=== PATIENT | female | born 1960 | race Caucasian/White ===

== ENCOUNTER 2022-05-29 15:30 | Inpatient (IN) | payer MEDICAID ==
[2022-05-29] MEDS ORDERED: traZODone 50 MG TAB PO SCH (22:00)
[2022-05-29 23:41] LABS: Basophils % (Auto) 0.4 % (0.0-1.8); Eosinophils % (Auto) 1.5 % (0.0-4.3); Hematocrit 38.8 % (30.3-42.9); Hemoglobin 12.8 gm/dl (10.1-14.3); Lymphocytes # (Auto) 1.1 K/mm3 (1.2-5.4); Mean Corpuscular HGB Conc 33 % (30-34); Mean Corpuscular Volume 94 fl (79-97); Monocytes # (Auto) 0.4 K/mm3 (0.0-0.8); Monocytes % (Auto) 11.9 % (0.0-7.3); Platelet Count 250 K/mm3 (140-440); Red Blood Count 4.12 M/mm3 (3.65-5.03)
[2022-05-30] MEDS: QUEtiapine 25 MG TAB PO SCH ×2 (00:07→21:19)
[2022-05-30 01:07] LABS: Alanine Aminotransferase 9 units/L (7-56); Albumin 3.9 g/dL (3.9-5); BUN/Creatinine Ratio 16; Blood Urea Nitrogen 13 mg/dL (7-17); Calcium 9.1 mg/dL (8.4-10.2); Hemolysis Index 3
[2022-05-30 01:21] LABS: Chol/HDL Ratio 2.22 %; HDL Cholesterol 89 mg/dL (40-59); LDL Cholesterol,Direct 108 mg/dL (50-130)
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
[2022-05-30] MEDS ORDERED: NITROGLYCERIN 0.4 MG TAB SUBL SL SCH (09:00)
[2022-05-30] MEDS ORDERED: ESTRADIOL 0.5 MG PO SCH (10:00)
[2022-05-30] MEDS: PRENATAL VIT27-FE FUMARATE-FOLIC ACID VIT TAB PO SCH (10:20)
[2022-05-30] MEDS: PANTOPRAZOLE 40 MG TAB PO SCH (10:20)
[2022-05-30] MEDS: ESTRADIOL 1 MG TAB PO SCH (10:20)
[2022-05-30] MEDS: DIVALPROEX DR 125 MG TAB PO SCH ×2 (10:20→21:19)
[2022-05-30] MEDS: DONEPEZIL 5 MG TAB PO SCH (21:19)
[2022-05-31] MEDS: ESTRADIOL 1 MG TAB PO SCH (09:17)
[2022-05-31] MEDS: PANTOPRAZOLE 40 MG TAB PO SCH (09:18)
[2022-05-31] MEDS: DIVALPROEX DR 125 MG TAB PO SCH (09:18)
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
[2022-05-31] MEDS: PRENATAL VIT27-FE FUMARATE-FOLIC ACID VIT TAB PO SCH (13:18)
[2022-05-31] MEDS: IBUPROFEN 800 MG TAB PO PRN (17:05)
[2022-05-31] MEDS: QUEtiapine 25 MG TAB PO SCH (21:26)
[2022-05-31] MEDS: DIVALPROEX DR 250 MG TAB PO SCH (21:26)
[2022-05-31] MEDS: DONEPEZIL 5 MG TAB PO SCH (21:26)
--- NOTE | 2022-06-01 08:54 | Progress Note ---
Subjective Date of service: 06/01/22 Subjective Comment: The patient was seen today. She is calm and cooperative. She says she feels okay. The patient states that she "didn't sleep too well." She denies SI/HI or hallucinations of any kind. REVIEW OF SYSTEMS Constitutional: Negative for weight loss ENT: Negative for stridor Respiratory: Negative for cough or hemoptysis All other systems reviewed and are negative MENTAL STATUS EXAMINATION General Appearance and Behavior: Age appropriate, wearing appropriate clothes, cooperative, polite with questioning, good eye contact Cooperation: cooperative Psychomotor Behavior: Psychomotor normal Mood: calm Affect and affective range: congruent with states mood Thought Process: Goal oriented Thought Content: paranoid/ delusions Speech: Normal volume, Regular rate and rhythm Suicidal Ideation: Denies Homicidal Ideation: Denies Hallucination: Denies Delusions:Yes Impulse Control: Limited Insight and Judgment: Limited Memory: Intact Attention:attentive Orientation: Alert and oriented Diagnoses: Bipolar Treatment Plan Patient admitted for inpatient psychiatric evaluation, medication adjustment and close monitoring The patient's behavior, mood, sleep and appetite will be closely monitored. Patient enrolled in individual and group therapeutic sessions and encouraged to attend. Patient provided with a safe and structured environment. Patient's physical health needs will be addressed by the Hospitalist. Hospitalist Consulted Labs including CBC, CMP, Lipid profile and Hemoglobin A1C levels ordered for baseline reference Social Assessment will be completed and the Corpsman will work with patient and family to ensure a suitable and safe disposition Medication adjustment will be made as clinically indicated Increased Seroquel 50mg po qhs Usual Wellness Religious/Preservation: - Start Trazodone 50 mg po QHS & 50 mg po QHS PRN between 10 PM & 2 AM for insomnia - Start Melatonin 5 mg po QHS to promote circadian rhythm The patient agreed on the treatment plan, understood the risk, benefit, alternative treatment, potential consequence of no treatment, and gave informed consent. Estimated days: 7 Post hospital care: primary care provider, psychiatric provider Case staffed with Dr. Angeles Medications and Allergies Allergies Allergy/AdvReac Type Severity Reaction Status Date / Time codeine Allergy Unknown Verified 05/29/22 18:42 diphenhydramine Allergy Unknown Verified 05/29/22 18:42 [From Benadryl] Home Medications Medication Instructions Recorded Confirmed Last Taken Type Nitroglycerin [Nitrostat] 0.4 mg SL PRN 05/29/22 05/29/22 Unknown History Pantoprazole [Protonix] 40 mg PO QDAY 05/29/22 05/29/22 Unknown History Vit-Fe Fumar-FA [ 1 mg PO DAILY 05/29/22 05/29/22 Unknown History Vitamin] QUEtiapine [SEROquel] 25 mg PO HS 05/29/22 05/29/22 Unknown History donepeziL [Aricept] 5 mg PO QHS 05/29/22 05/29/22 Unknown History estradioL [Estradiol] 0.5 mg PO DAILY 05/29/22 05/29/22 Unknown History Active Meds: Active Medications Divalproex Sodium (Divalproex Dr 250 Mg Tab) 250 mg PO BID [facility] Last Admin: 05/31/22 21:26 Dose: Not Given Donepezil HCl (Donepezil 5 Mg Tab) 5 mg PO QHS [facility] Last Admin: 05/31/22 21:26 Dose: Not Given Estradiol (Estradiol 1 Mg Tab) 0.5 mg PO QDAY [facility] Last Admin: 05/31/22 09:17 Dose: 0.5 mg Ibuprofen (Ibuprofen 800 Mg Tab) 800 mg PO Q8H PRN PRN Reason: Pain, Mild (1-3) Last Admin: 05/31/22 17:05 Dose: 800 mg Multivitamins/Iron/Calcium ( [id number] Fumarate-Folic Acid Vit Tab) 1 each PO DAILY [facility] Last Admin: 05/31/22 13:18 Dose: 1 each Nitroglycerin (Nitroglycerin 0.4 Mg Tab Subl) 0.4 mg SL PRN [facility] Pantoprazole Sodium (Pantoprazole 40 Mg Tab) 40 mg PO QDAY [facility] Last Admin: 05/31/22 09:18 Dose: 40 mg Quetiapine Fumarate (Quetiapine 25 Mg Tab) 25 mg PO [facility] Last Admin: 05/31/22 21:26 Dose: 25 mg Results - Results Labs/Vitals: Laboratory Last Values WBC 3.0 K/mm3 (4.5-11.0) L 05/29/22 23:25 RBC 4.12 M/mm3 (3.65-5.03) 05/29/22 23:25 Hgb 12.8 gm/dl (10.1-14.3) 05/29/22 23:25 Hct 38.8 % (30.3-42.9) 05/29/22 23:25 MCV 94 fl (79-97) 05/29/22 23:25 MCH 31 pg (28-32) 05/29/22 23:25 MCHC 33 % (30-34) 05/29/22 23:25 RDW 13.0 % (13.2-15.2) L 05/29/22 23:25 Plt Count 250 K/mm3 (140-440) 05/29/22 23:25 Lymph % (Auto) 36.0 % (13.4-35.0) H 05/29/22 23:25 [place] % (Auto) 11.9 % (0.0-7.3) H 05/29/22 23:25 Eos % (Auto) 1.5 % (0.0-4.3) 05/29/22 23:25 Baso % (Auto) 0.4 % (0.0-1.8) 05/29/22 23:25 Lymph # (Auto) 1.1 K/mm3 (1.2-5.4) L 05/29/22 23:25 [place] # (Auto) 0.4 K/mm3 (0.0-0.8) 05/29/22 23:25 Eos # (Auto) 0.0 K/mm3 (0.0-0.4) 05/29/22 23:25 Baso # (Auto) 0.0 K/mm3 (0.0-0.1) 05/29/22 23:25 Seg Neutrophils % 50.2 % (40.0-70.0) 05/29/22 23:25 Seg Neutrophils # 1.5 K/mm3 (1.8-7.7) L 05/29/22 23:25 Sodium 142 mmol/L (137-145) 05/29/22 23:25 Potassium 3.8 mmol/L (3.6-5.0) 05/29/22 23:25 Chloride 106.3 mmol/L (98-107) 05/29/22 23:25 Carbon Dioxide 25 mmol/L (22-30) 05/29/22 23:25 Anion Gap 15 mmol/L 05/29/22 23:25 BUN 13 mg/dL (7-17) 05/29/22 23:25 Creatinine 0.8 mg/dL (0.6-1.2) 05/29/22 23:25 Estimated GFR > 60 ml/min 05/29/22 23:25 BUN/Creatinine Ratio 16 % 05/29/22 23:25 Glucose 105 mg/dL (65-100) H 05/29/22 23:25 POC Glucose 109 mg/dL (70-105) H 05/29/22 23:52 Hemoglobin A1c 5.5 % (4-6) 05/29/22 23:25 Calcium 9.1 mg/dL (8.4-10.2) 05/29/22 23:25 Total Bilirubin 0.40 mg/dL (0.1-1.2) 05/29/22 23:25 AST 14 units/L (5-40) 05/29/22 23:25 ALT 9 units/L (7-56) 05/29/22 23:25 Alkaline Phosphatase 90 units/L (35-129) 05/29/22 23:25 Total Protein 6.7 g/dL (6.3-8.2) 05/29/22 23:25 Albumin 3.9 g/dL (3.9-5) 05/29/22 23:25 Albumin/Globulin Ratio 1.4 % 05/29/22 23:25 Triglycerides 38 mg/dL (2-149) 05/29/22 23:25 Cholesterol 198 mg/dL (50-199) 05/29/22 23:25 LDL Cholesterol Direct 108 mg/dL (50-130) 05/29/22 23:25 HDL Cholesterol 89 mg/dL (40-59) H 05/29/22 23:25 Cholesterol/HDL Ratio 2.22 % 05/29/22 23:25 TSH 1.730 mlU/mL (0.270-4.200) 05/29/22 23:25 Last Vital Signs Temp 98.9 F 06/01/22 07:34 Pulse 79 06/01/22 07:34 Resp 16 06/01/22 07:34 BP 145/59 06/01/22 07:34 Pulse Ox 100 06/01/22 07:34
[2022-06-01] MEDS: PANTOPRAZOLE 40 MG TAB PO SCH (09:32)
[2022-06-01] MEDS: PRENATAL VIT27-FE FUMARATE-FOLIC ACID VIT TAB PO SCH (09:32)
[2022-06-01] MEDS: ESTRADIOL 1 MG TAB PO SCH (09:34)
[2022-06-01] MEDS: DIVALPROEX DR 250 MG TAB PO SCH ×3 (09:43→23:22)
[2022-06-01] MEDS: DONEPEZIL 5 MG TAB PO SCH ×2 (21:28→23:22)
[2022-06-01] MEDS: QUEtiapine 25 MG TAB PO SCH ×2 (21:28→23:22)
--- NOTE | 2022-06-02 09:00 | Progress Note ---
Subjective Date of service: 06/02/22 Principal diagnosis: Bipolar Disorder Subjective Comment: The patient was seen today. She says she is doing okay. She says she had to put blankets on her legs because she didn't get her JESSICA hose. The patient denies SI/HI or hallucinations. She says she did not sleep well due to another patient yelling and screaming. 06/01 The patient was seen today. She is calm and cooperative. She says she feels okay. The patient states that she "didn't sleep too well." She denies SI/HI or hallucinations of any kind. REVIEW OF SYSTEMS Constitutional: Negative for weight loss ENT: Negative for stridor Respiratory: Negative for cough or hemoptysis All other systems reviewed and are negative MENTAL STATUS EXAMINATION General Appearance and Behavior: Age appropriate, wearing appropriate clothes, cooperative, polite with questioning, good eye contact Cooperation: cooperative Psychomotor Behavior: Psychomotor normal Mood: calm Affect and affective range: congruent with states mood Thought Process: Goal oriented Thought Content: paranoid/ delusions Speech: Normal volume, Regular rate and rhythm Suicidal Ideation: Denies Homicidal Ideation: Denies Hallucination: Denies Delusions:Yes Impulse Control: Limited Insight and Judgment: Limited Memory: Intact Attention:attentive Orientation: Alert and oriented Diagnoses: Bipolar Treatment Plan Patient admitted for inpatient psychiatric evaluation, medication adjustment and close monitoring The patient's behavior, mood, sleep and appetite will be closely monitored. Patient enrolled in individual and group therapeutic sessions and encouraged to attend. Patient provided with a safe and structured environment. Patient's physical health needs will be addressed by the Hospitalist. Hospitalist Consulted Labs including CBC, CMP, Lipid profile and Hemoglobin A1C levels ordered for baseline reference Social Assessment will be completed and the Sales Hunter will work with pat ient and family to ensure a suitable and safe disposition Medication adjustment will be made as clinically indicated Increased Seroquel 50mg po qhs yesterday No changes made today Usual Wellness Alevism/Preservation: - Start Trazodone 50 mg po QHS & 50 mg po QHS PRN between 10 PM & 2 AM for insomnia - Start Melatonin 5 mg po QHS to promote circadian rhythm The patient agreed on the treatment plan, understood the risk, benefit, alternative treatment, potential consequence of no treatment, and gave informed consent. Estimated days: 7 Post hospital care: primary care provider, psychiatric provider Case staffed with Dr. Angeles Medications and Allergies Allergies Allergy/AdvReac Type Severity Reaction Status Date / Time codeine Allergy Unknown Verified 05/29/22 18:42 diphenhydramine Allergy Unknown Verified 05/29/22 18:42 [From Benadryl] Home Medications Medication Instructions Recorded Confirmed Last Taken Type Nitroglycerin [Nitrostat] 0.4 mg SL PRN 05/29/22 05/29/22 Unknown History Pantoprazole [Protonix] 40 mg PO QDAY 05/29/22 05/29/22 Unknown History Vit-Fe Fumar-FA [ 1 mg PO DAILY 05/29/22 05/29/22 Unknown History Vitamin] QUEtiapine [SEROquel] 25 mg PO HS 05/29/22 05/29/22 Unknown History donepeziL [Aricept] 5 mg PO QHS 05/29/22 05/29/22 Unknown History estradioL [Estradiol] 0.5 mg PO DAILY 05/29/22 05/29/22 Unknown History Active Meds: Active Medications Divalproex Sodium (Divalproex Dr 250 Mg Tab) 250 mg PO BID [facility] Last Admin: 06/01/22 23:22 Dose: Not Given Donepezil HCl (Donepezil 5 Mg Tab) 5 mg PO QHS [facility] Last Admin: 06/01/22 23:22 Dose: Not Given Estradiol (Estradiol 1 Mg Tab) 0.5 mg PO QDAY [facility] Last Admin: 06/01/22 09:34 Dose: 0.5 mg Ibuprofen (Ibuprofen 800 Mg Tab) 800 mg PO Q8H PRN PRN Reason: Pain, Mild (1-3) Last Admin: 05/31/22 17:05 Dose: 800 mg Multivitamins/Iron/Calcium ( [id number]-Ki Fumarate-Folic Acid Vit Tab) 1 each PO DAILY [facility] Last Admin: 06/01/22 09:32 Dose: 1 each Nitroglycerin (Nitroglycerin 0.4 Mg Tab Subl) 0.4 mg SL PRN [facility] Pantoprazole Sodium (Pantoprazole 40 Mg Tab) 40 mg PO QDAY [facility] Last Admin: 06/01/22 09:32 Dose: 40 mg Quetiapine Fumarate (Quetiapine 25 Mg Tab) 50 mg PO QHS [facility] Last Admin: 06/01/22 23:22 Dose: Not Given Results - Results Labs/Vitals: Laboratory Last Values WBC 3.0 K/mm3 (4.5-11.0) L 05/29/22 23:25 RBC 4.12 M/mm3 (3.65-5.03) 05/29/22 23:25 Hgb 12.8 gm/dl (10.1-14.3) 05/29/22 23:25 Hct 38.8 % (30.3-42.9) 05/29/22 23:25 MCV 94 fl (79-97) 05/29/22 23:25 MCH 31 pg (28-32) 05/29/22 23:25 MCHC 33 % (30-34) 05/29/22 23:25 RDW 13.0 % (13.2-15.2) L 05/29/22 23:25 Plt Count 250 K/mm3 (140-440) 05/29/22 23:25 Lymph % (Auto) 36.0 % (13.4-35.0) H 05/29/22 23:25 [place] % (Auto) 11.9 % (0.0-7.3) H 05/29/22 23:25 Eos % (Auto) 1.5 % (0.0-4.3) 05/29/22 23:25 Baso % (Auto) 0.4 % (0.0-1.8) 05/29/22 23:25 Lymph # (Auto) 1.1 K/mm3 (1.2-5.4) L 05/29/22 23:25 [place] # (Auto) 0.4 K/mm3 (0.0-0.8) 05/29/22 23:25 Eos # (Auto) 0.0 K/mm3 (0.0-0.4) 05/29/22 23:25 Baso # (Auto) 0.0 K/mm3 (0.0-0.1) 05/29/22 23: Seg Neutrophils % 50.2 % (40.0-70.0) 05/29/22 23:25 Seg Neutrophils # 1.5 K/mm3 (1.8-7.7) L 05/29/22 23:25 Sodium 142 mmol/L (137-145) 05/29/22 23:25 Potassium 3.8 mmol/L (3.6-5.0) 05/29/22 23:25 Chloride 106.3 mmol/L (98-107) 05/29/22 23:25 Carbon Dioxide 25 mmol/L (22-30) 05/29/22 23:25 Anion Gap 15 mmol/L 05/29/22 23:25 BUN 13 mg/dL (7-17) 05/29/22 23:25 Creatinine 0.8 mg/dL (0.6-1.2) 05/29/22 23:25 Estimated GFR > 60 ml/min 05/29/22 23:25 BUN/Creatinine Ratio 16 % 05/29/22 23:25 Glucose 105 mg/dL (65-100) H 05/29/22 23:25 POC Glucose 109 mg/dL (70-105) H 05/29/22 23:52 Hemoglobin A1c 5.5 % (4-6) 05/29/22 23:25 Calcium 9.1 mg/dL (8.4-10.2) 05/29/22 23:25 Total Bilirubin 0.40 mg/dL (0.1-1.2) 05/29/22 23:25 AST 14 units/L (5-40) 05/29/22 23:25 ALT 9 units/L (7-56) 05/29/22 23:25 Alkaline Phosphatase 90 units/L (35-129) 05/29/22 23:25 Total Protein 6.7 g/dL (6.3-8.2) 05/29/22 23:25 Albumin 3.9 g/dL (3.9-5) 05/29/22 23:25 Albumin/Globulin Ratio 1.4 % 05/29/22 23:25 Triglycerides 38 mg/dL (2-149) 05/29/22 23:25 Cholesterol 198 mg/dL (50-199) 05/29/22 23:25 LDL Cholesterol Direct 108 mg/dL (50-130) 05/29/22 23:25 HDL Cholesterol 89 mg/dL (40-59) H 05/29/22 23:25 Cholesterol/HDL Ratio 2.22 % 05/29/22 23:25 TSH 1.730 mlU/mL (0.270-4.200) 05/29/22 23:25 Last Vital Signs Temp 98.5 F 06/01/22 19:34 Pulse 72 06/01/22 19:34 Resp 18 07/01/22 19:34 BP 129/61 06/01/22 19:34 Pulse Ox 99 06/01/22 19:34
[2022-06-02] MEDS: DIVALPROEX DR 250 MG TAB PO SCH ×2 (10:00→21:44)
[2022-06-02] MEDS: PANTOPRAZOLE 40 MG TAB PO SCH (10:00)
[2022-06-02] MEDS: PRENATAL VIT27-FE FUMARATE-FOLIC ACID VIT TAB PO SCH (10:00)
[2022-06-02] MEDS: ESTRADIOL 1 MG TAB PO SCH (11:13)
[2022-06-02] MEDS: QUEtiapine 25 MG TAB PO SCH (21:43)
[2022-06-02] MEDS: DONEPEZIL 5 MG TAB PO SCH (21:45)
[2022-06-02] MEDS: IBUPROFEN 800 MG TAB PO PRN (21:46)
--- NOTE | 2022-06-03 09:33 | Progress Note ---
Subjective Date of service: 06/03/22 Principal diagnosis: Bipolar Disorder Subjective Comment: The patient was seen today. She is calm and cooperative. She has some notes written down. She says "I need this to remember what to ask." The patient tells me that she takes a "blue pill." She denies SI/HI or hallucinations. 06/02 The patient was seen today. She says she is doing okay. She says she had to put blankets on her legs because she didn't get her JESSICA hose. The patient denies SI/HI or hallucinations. She says she did not sleep well due to another patient yelling and screaming. 06/01 The patient was seen today. She is calm and cooperative. She says she feels okay. The patient states that she "didn't sleep too well." She denies SI/HI or hallucinations of any kind. REVIEW OF SYSTEMS Constitutional: Negative for weight loss ENT: Negative for stridor Respiratory: Negative for cough or hemoptysis All other systems reviewed and are negative MENTAL STATUS EXAMINATION General Appearance and Behavior: Age appropriate, wearing appropriate clothes, cooperative, polite with questioning, good eye contact Cooperation: cooperative Psychomotor Behavior: Psychomotor normal Mood: calm Affect and affective range: congruent with states mood Thought Process: Goal oriented Thought Content: paranoid/ delusions Speech: Normal volume, Regular rate and rhythm Suicidal Ideation: Denies Homicidal Ideation: Denies Hallucination: Denies Delusions:Yes Impulse Control: Limited Insight and Judgment: Limited Memory: Intact Attention:attentive Orientation: Alert and oriented Diagnoses: Bipolar Treatment Plan Patient admitted for inpatient psychiatric evaluation, medication adjustment and close monitoring The patient's behavior, mood, sleep and appetite will be closely monitored. Patient enrolled in individual and group therapeutic sessions and encouraged to attend. Patient provided with a safe and structured environment. Patient's physical health needs will be addressed by the Hospitalist. Hospitalist Consulted Labs including CBC, CMP, Lipid profile and Hemoglobin A1C levels ordered for baseline reference Social Assessment will be completed and the Finish Off Operator will work with patient and family to ensure a suitable and safe disposition Medication adjustment will be made as clinically indicated No changes made today Usual Wellness Mormon/Preservation: - Start Trazodone 50 mg po QHS & 50 mg po QHS PRN between 10 PM & 2 AM for insomnia - Start Melatonin 5 mg po QHS to promote circadian rhythm The patient agreed on the treatment plan, understood the risk, benefit, alternative treatment, potential consequence of no treatment, and gave informed consent. Estimated days: 7 Post hospital care: primary care provider, psychiatric provider Case staffed with Dr. Angeles Medications and Allergies Allergies Allergy/AdvReac Type Severity Reaction Status Date / Time codeine Allergy Unknown Verified 05/29/22 18:42 diphenhydramine Allergy Unknown Verified 05/29/22 18:42 [From Benadryl] Home Medications Medication Instructions Recorded Confirmed Last Taken Type Nitroglycerin [Nitrostat] 0.4 mg SL PRN 05/29/22 05/29/22 Unknown History Pantoprazole [Protonix] 40 mg PO QDAY 05/29/22 05/29/22 Unknown History Vit-Fe Fumar-FA [ 1 mg PO DAILY 05/29/22 05/29/22 Unknown History Vitamin] QUEtiapine [SEROquel] 25 mg PO HS 05/29/22 05/29/22 Unknown History donepeziL [Aricept] 5 mg PO QHS 05/29/22 05/29/22 Unknown History estradioL [Estradiol] 0.5 mg PO DAILY 05/29/22 05/29/22 Unknown History Active Meds: Active Medications Divalproex Sodium (Divalproex Dr 250 Mg Tab) 250 mg PO BID [facility] Last Admin: 06/02/22 21:44 Dose: Not Given Donepezil HCl (Donepezil 5 Mg Tab) 5 mg PO QHS [facility] Last Admin: 06/02/22 21:45 Dose: Not Given Estradiol (Estradiol 1 Mg Tab) 0.5 mg PO QDAY [facility] Last Admin: 06/02/22 11:13 Dose: 0.5 mg Ibuprofen (Ibuprofen 800 Mg Tab) 800 mg PO Q8H PRN PRN Reason: Pain, Mild (1-3) Last Admin: 06/02/22 21:46 Dose: 800 mg Multivitamins/Iron/Calcium ( [id number] Fumarate-Folic Acid Vit Tab) 1 each PO DAILY [facility] Last Admin: 06/02/22 10:00 Dose: 1 each Nitroglycerin (Nitroglycerin 0.4 Mg Tab Subl) 0.4 mg SL PRN [facility] Pantoprazole Sodium (Pantoprazole 40 Mg Tab) 40 mg PO QDAY [facility] Last Admin: 06/02/22 10:00 Dose: 40 mg Quetiapine Fumarate (Quetiapine 25 Mg Tab) 50 mg PO QHS [facility] Last Admin: 06/02/22 21:43 Dose: 25 mg Results - Results Labs/Vitals: Laboratory Last Values WBC 3.0 K/mm3 (4.5-11.0) L 05/29/22 23:25 RBC 4.12 M/mm3 (3.65-5.03) 05/29/22 23:25 Hgb 12.8 gm/dl (10.1-14.3) 05/29/22 23:25 Hct 38.8 % (30.3-42.9) 05/29/22 23:25 MCV 94 fl (79-97) 05/29/22 23:25 MCH 31 pg (28-32) 05/29/22 23:25 MCHC 33 % (30-34) 05/29/22 23:25 RDW 13.0 % (13.2-15.2) L 05/29/22 23:25 Plt Count 250 K/mm3 (140-440) 05/29/22 23:25 Lymph % (Auto) 36.0 % (13.4-35.0) H 05/29/22 23:25 [place] % (Auto) 11.9 % (0.0-7.3) H 05/29/22 23:25 Eos % (Auto) 1.5 % (0.0-4.3) 05/29/22 23:25 Baso % (Auto) 0.4 % (0.0-1.8) 05/29/22 23:25 Lymph # (Auto) 1.1 K/mm3 (1.2-5.4) L 05/29/22 23:25 [place] # (Auto) 0.4 K/mm3 (0.0-0.8) 05/29/22 23:25 Eos # (Auto) 0.0 K/mm3 (0.0-0.4) 05/29/22 23:25 Baso # (Auto) 0.0 K/mm3 (0.0-0.1) 05/29/22 23:25 Seg Neutrophils % 50.2 % (40.0-70.0) 05/29/22 23:25 Seg Neutrophils # 1.5 K/mm3 (1.8-7.7) L 05/29/22 23:25 Sodium 142 mmol/L (137-145) 05/29/22 23:25 Potassium 3.8 mmol/L (3.6-5.0) 05/29/22 23:25 Chloride 106.3 mmol/L (98-107) 05/29/22 23:25 Carbon Dioxide 25 mmol/L (22-30) 05/29/22 23:25 Anion Gap 15 mmol/L 05/29/22 23:25 BUN 13 mg/dL (7-17) 05/29/22 23:25 Creatinine 0.8 mg/dL (0.6-1.2) 05/29/22 23:25 Estimated GFR > 60 ml/min 05/29/22 23:25 BUN/Creatinine Ratio 16 % 05/29/22 23:25 Glucose 105 mg/dL (65-100) H 05/29/22 23:25 POC Glucose 109 mg/dL (70-105) H 05/29/22 23:52 Hemoglobin A1c 5.5 % (4-6) 05/29/22 23:25 Calcium 9.1 mg/dL (8.4-10.2) 05/29/22 23:25 Total Bilirubin 0.40 mg/dL (0.1-1.2) 05/29/22 23:25 AST 14 units/L (5-40) 05/29/22 23:25 ALT 9 units/L (7-56) 05/29/22 23:25 Alkaline Phosphatase 90 units/L (35-129) 05/29/22 23:25 Total Protein 6.7 g/dL (6.3-8.2) 05/29/22 23:25 Albumin 3.9 g/dL (3.9-5) 05/29/22 23:25 Albumin/Globulin Ratio 1.4 % 05/29/22 23:25 Triglycerides 38 mg/dL (2-149) 05/29/22 23:25 Cholesterol 198 mg/dL (50-199) 05/29/22 23:25 LDL Cholesterol Direct 108 mg/dL (50-130) 05/29/22 23:25 HDL Cholesterol 89 mg/dL (40-59) H 05/29/22 23:25 Cholesterol/HDL Ratio 2.22 % 05/29/22 23:25 TSH 1.730 mlU/mL (0.270-4.200) 05/29/22 23:25 Valproic Acid 4.4 ug/mL (50-100) L 06/03/22 07:14 Last Vital Signs Temp 97.9 F 06/02/22 20:01 Pulse 73 06/02/22 20:01 Resp 18 06/02/22 21:46 BP 108/46 06/02/22 20:01 Pulse Ox 98 06/02/22 20:01
[2022-06-03] MEDS: ESTRADIOL 1 MG TAB PO SCH (09:49)
[2022-06-03] MEDS: PANTOPRAZOLE 40 MG TAB PO SCH (09:49)
[2022-06-03] MEDS: PRENATAL VIT27-FE FUMARATE-FOLIC ACID VIT TAB PO SCH (09:49)
[2022-06-03] MEDS: DIVALPROEX DR 250 MG TAB PO SCH ×2 (09:50→22:10)
[2022-06-03] MEDS: DONEPEZIL 5 MG TAB PO SCH (22:03)
[2022-06-03] MEDS: QUEtiapine 25 MG TAB PO SCH (22:10)
--- NOTE | 2022-06-04 09:16 | Progress Note ---
Subjective Date of service: 06/04/22 Principal diagnosis: Bipolar Disorder Subjective Comment: The patent was seen today. She is lying in bed awake. She is calm and cooperative. She denies SI/HI or hallucinations of any kind. 06/03 The patient was seen today. She is calm and cooperative. She has some notes written down. She says "I need this to remember what to ask." The patient tells me that she takes a "blue pill." She denies SI/HI or hallucinations. 06/02 The patient was seen today. She says she is doing okay. She says she had to put blankets on her legs because she didn't get her JESSICA hose. The patient denies SI/HI or hallucinations. She says she did not sleep well due to another patient yelling and screaming. 06/01 The patient was seen today. She is calm and cooperative. She says she feels okay. The patient states that she "didn't sleep too well." She denies SI/HI or hallucinations of any kind. REVIEW OF SYSTEMS Constitutional: Negative for weight loss ENT: Negative for stridor Respiratory: Negative for cough or hemoptysis All other systems reviewed and are negative MENTAL STATUS EXAMINATION General Appearance and Behavior: Age appropriate, wearing appropriate clothes, cooperative, polite with questioning, good eye contact Cooperation: cooperative Psychomotor Behavior: Psychomotor normal Mood: calm Affect and affective range: congruent with states mood Thought Process: Goal oriented Thought Content: paranoid/ delusions Speech: Normal volume, Regular rate and rhythm Suicidal Ideation: Denies Homicidal Ideation: Denies Hallucination: Denies Delusions:Yes Impulse Control: Limited Insight and Judgment: Limited Memory: Intact Attention:attentive Orientation: Alert and oriented Diagnoses: Bipolar Treatment Plan Patient admitted for inpatient psychiatric evaluation, medication adjustment and close monitoring The patient's behavior, mood, sleep and appetite will be closely monitored. Patient enrolled in individual and group therapeutic sessions and encouraged to attend. Patient provided with a safe and structured environment. Patient's physical health needs will be addressed by the Hospitalist. Hospitalist Consulted Labs including CBC, CMP, Lipid profile and Hemoglobin A1C levels ordered for baseline reference Social Assessment will be completed and the Locomotive Engineer Electric will work with patient and family to ensure a suitable and safe disposition Medication adjustment will be made as clinically indicated No changes made today Usual Wellness Church/Preservation: - Start Trazodone 50 mg po QHS & 50 mg po QHS PRN between 10 PM & 2 AM for insomnia - Start Melatonin 5 mg po QHS to promote circadian rhythm The patient agreed on the treatment plan, understood the risk, benefit, alternative treatment, potential consequence of no treatment, and gave informed consent. Estimated days: 7 Post hospital care: primary care provider, psychiatric provider Case staffed with Dr. Angeles Medications and Allergies Allergies Allergy/AdvReac Type Severity Reaction Status Date / Time codeine Allergy Unknown Verified 05/29/22 18:42 diphenhydramine Allergy Unknown Verified 05/29/22 18:42 [From Benadryl] Home Medications Medication Instructions Recorded Confirmed Last Taken Type Nitroglycerin [Nitrostat] 0.4 mg SL PRN 05/29/22 05/29/22 Unknown History Pantoprazole [Protonix] 40 mg PO QDAY 05/29/22 05/29/22 Unknown History Vit-Fe Fumar-FA [ 1 mg PO DAILY 05/29/22 05/29/22 Unknown History Vitamin] QUEtiapine [SEROquel] 25 mg PO HS 05/29/22 05/29/22 Unknown History donepeziL [Aricept] 5 mg PO QHS 05/29/22 05/29/22 Unknown History estradioL [Estradiol] 0.5 mg PO DAILY 05/29/22 05/29/22 Unknown History Active Meds: Active Medications Divalproex Sodium (Divalproex Dr 250 Mg Tab) 250 mg PO BID [facility] Last Admin: 06/03/22 22:10 Dose: Not Given Donepezil HCl (Donepezil 5 Mg Tab) 5 mg PO QHS [facility] Last Admin: 06/03/22 22:03 Dose: 5 mg Estradiol (Estradiol 1 Mg Tab) 0.5 mg PO QDAY [facility] Last Admin: 06/03/22 09:49 Dose: 0.5 mg Ibuprofen (Ibuprofen 800 Mg Tab) 800 mg PO Q8H PRN PRN Reason: Pain, Mild (1-3) Last Admin: 06/02/22 21:46 Dose: 800 mg Multivitamins/Iron/Calcium ( [id number] Fumarate-Folic Acid Vit Tab) 1 each PO DAILY [facility] Last Admin: 06/03/22 09:49 Dose: 1 each Nitroglycerin (Nitroglycerin 0.4 Mg Tab Subl) 0.4 mg SL PRN [facility] Pantoprazole Sodium (Pantoprazole 40 Mg Tab) 40 mg PO QDAY [facility] Last Admin: 06/03/22 09:49 Dose: 40 mg Quetiapine Fumarate (Quetiapine 25 Mg Tab) 50 mg PO QHS [facility] Last Admin: 06/03/22 22:10 Dose: Not Given Results - Results Labs/Vitals: Laboratory Last Values WBC 3.0 K/mm3 (4.5-11.0) L 05/29/22 23:25 RBC 4.12 M/mm3 (3.65-5.03) 05/29/22 23:25 Hgb 12.8 gm/dl (10.1-14.3) 05/29/22 23:25 Hct 38.8 % (30.3-42.9) 05/29/22 23:25 MCV 94 fl (79-97) 05/29/22 23:25 MCH 31 pg (28-32) 05/29/22 23:25 MCHC 33 % (30-34) 05/29/22 23:25 RDW 13.0 % (13.2-15.2) L 05/29/22 23:25 Plt Count 250 K/mm3 (140-440) 05/29/22 23:25 Lymph % (Auto) 36.0 % (13.4-35.0) H 05/29/22 23:25 [place] % (Auto) 11.9 % (0.0-7.3) H 05/29/22 23:25 Eos % (Auto) 1.5 % (0.0-4.3) 05/29/22 23:25 Baso % (Auto) 0.4 % (0.0-1.8) 05/29/22 23:25 Lymph # (Auto) 1.1 K/mm3 (1.2-5.4) L 05/29/22 23:25 [place] # (Auto) 0.4 K/mm3 (0.0-0.8) 05/29/22 23:25 Eos # (Auto) 0.0 K/mm3 (0.0-0.4) 05/29/22 23:25 Baso # (Auto) 0.0 K/mm3 (0.0-0.1) 05/29/22 23:25 Seg Neutrophils % 50.2 % (40.0-70.0) 05/29/22 23:25 Seg Neutrophils # 1.5 K/mm3 (1.8-7.7) L 05/29/22 23:25 Sodium 142 mmol/L (137-145) 05/29/22 23:25 Potassium 3.8 mmol/L (3.6-5.0) 05/29/22 23:25 Chloride 106.3 mmol/L (98-107) 05/29/22 23:25 Carbon Dioxide 25 mmol/L (22-30) 05/29/22 23:25 Anion Gap 15 mmol/L 05/29/22 23:25 BUN 13 mg/dL (7-17) 05/29/22 23:25 Creatinine 0.8 mg/dL (0.6-1.2) 05/29/22 23:25 Estimated GFR > 60 ml/min 05/29/22 23:25 BUN/Creatinine Ratio 16 % 05/29/22 23:25 Glucose 105 mg/dL (65-100) H 05/29/22 23:25 POC Glucose 109 mg/dL (70-105) H 05/29/22 23:52 Hemoglobin A1c 5.5 % (4-6) 05/29/22 23:25 Calcium 9.1 mg/dL (8.4-10.2) 05/29/22 23:25 Total Bilirubin 0.40 mg/dL (0.1-1.2) 05/29/22 23:25 AST 14 units/L (5-40) 05/29/22 23:25 ALT 9 units/L (7-56) 05/29/22 23:25 Alkaline Phosphatase 90 units/L (35-129) 05/29/22 23:25 Total Protein 6.7 g/dL (6.3-8.2) 05/29/22 23:25 Albumin 3.9 g/dL (3.9-5) 05/29/22 23:25 Albumin/Globulin Ratio 1.4 % 05/29/22 23:25 Triglycerides 38 mg/dL (2-149) 05/29/22 23:25 Cholesterol 198 mg/dL (50-199) 05/29/22 23:25 LDL Cholesterol Direct 108 mg/dL (50-130) 05/29/22 23:25 HDL Cholesterol 89 mg/dL (40-59) H 05/29/22 23:25 Cholesterol/HDL Ratio 2.22 % 05/29/22 23:25 TSH 1.730 mlU/mL (0.270-4.200) 05/29/22 23:25 Valproic Acid 4.4 ug/mL (50-100) L 06/03/22 07:14 Last Vital Signs Temp 98.4 F 06/03/22 19:48 Pulse 73 06/03/22 19:48 Resp 17 06/03/22 19:48 BP 129/57 06/03/22 19:48 Pulse Ox 98 06/03/22 19:48
[2022-06-04 10:19] VITALS: BP 129/42
[2022-06-04] MEDS: PRENATAL VIT27-FE FUMARATE-FOLIC ACID VIT TAB PO SCH (10:19)
[2022-06-04] MEDS: PANTOPRAZOLE 40 MG TAB PO SCH (10:19)
[2022-06-04] MEDS: DIVALPROEX DR 250 MG TAB PO SCH ×3 (10:19→21:36)
[2022-06-04] MEDS: ESTRADIOL 1 MG TAB PO SCH (15:36)
[2022-06-04] MEDS: QUEtiapine 25 MG TAB PO SCH (21:30)
[2022-06-04] MEDS: DONEPEZIL 5 MG TAB PO SCH ×2 (21:30→21:36)
--- NOTE | 2022-06-05 10:08 | Discharge Summary ---
Providers - Providers Date of Admission: 05/29/22 23:08 Date of discharge: 06/05/22 Attending physician: ANGEL WORTHINGTON MD 05/29/22 20:42 Consult to Physician [CONS] Routine Comment: Consulting Provider: MARIE WRIGHT Physician Instructions: Ps manage conditions as per H&P. Reason For Exam: New admission Primary care physician: [employer]ER Hospitalization Reason for admission: delusional Admitting Diagnosis: F31.9 - BIPOLAR DISORDER, UNSPECIFIED Condition: Stable Hospital course: The patient was provided inpatient psychiatric treatment with safe and supportive environment, group/individual therapy, psychiatric medication, medication adjustment, adverse effect monitor, medical evaluation, medical treatment, social service assessment, social support meeting, placement assessment and psycho-education. The patients mood, cognition, behavior, motivation, compliance to treatment and appreciation on family/social support are improved and stabilized. At the time of discharge, the patient had no suicidal ideas, no homicidal ideas, no aggressive thoughts, no endangering beha vior and no debilitating adverse effects. The patient agreed on the treatment plan, understood the risk, benefit, alternative treatment, potential consequence of no treatment, and gave informed consent. Disposition: HOME / SELF CARE / HOMELESS Time spent for discharge: 35 Allergies/Adverse Reactions: Allergies codeine Allergy (Verified 05/29/22 18:42) Unknown diphenhydramine [From Benadryl] Allergy (Verified 05/29/22 18:42) Unknown Vital Signs: Last Vital Signs Temp 98.5 F 06/04/22 09:45 Pulse 74 06/04/22 09:45 Resp 16 06/04/22 09:45 BP 129/42 06/04/22 09:45 Pulse Ox 100 06/04/22 09:45 Last Lab: Laboratory Last Values WBC 3.0 K/mm3 (4.5-11.0) L 05/29/22 23:25 RBC 4.12 M/mm3 (3.65-5.03) 05/29/22 23:25 Hgb 12.8 gm/dl (10.1-14.3) 05/29/22 23:25 Hct 38.8 % (30.3-42.9) 05/29/22 23:25 MCV 94 fl (79-97) 05/29/22 23:25 MCH 31 pg (28-32) 05/29/22 23:25 MCHC 33 % (30-34) 05/29/22 23:25 RDW 13.0 % (13.2-15.2) L 05/29/22 23:25 Plt Count 250 K/mm3 (140-440) 05/29/22 23:25 Lymph % (Auto) 36.0 % (13.4-35.0) H 05/29/22 23:25 Carlton % (Auto) 11.9 % (0.0-7.3) H 05/29/22 23:25 Eos % (Auto) 1.5 % (0.0-4.3) 05/29/22 23:25 Baso % (Auto) 0.4 % (0.0-1.8) 05/29/22 23:25 Lymph # (Auto) 1.1 K/mm3 (1.2-5.4) L 05/29/22 23:25 Carlton # (Auto) 0.4 K/mm3 (0.0-0.8) 05/29/22 23:25 Eos # (Auto) 0.0 K/mm3 (0.0-0.4) 05/29/22 23:25 Baso # (Auto) 0.0 K/mm3 (0.0-0.1) 05/29/22 23:25 Seg Neutrophils % 50.2 % (40.0-70.0) 05/29/22 23:25 Seg Neutrophils # 1.5 K/mm3 (1.8-7.7) L 05/29/22 23:25 Sodium 142 mmol/L (137-145) 05/29/22 23:25 Potassium 3.8 mmol/L (3.6-5.0) 05/29/22 23:25 Chloride 106.3 mmol/L (98-107) 05/29/22 23:25 Carbon Dioxide 25 mmol/L (22-30) 05/29/22 23:25 Anion Gap 15 mmol/L 05/29/22 23:25 BUN 13 mg/dL (7-17) 05/29/22 23:25 Creatinine 0.8 mg/dL (0.6-1.2) 05/29/22 23:25 Estimated GFR > 60 ml/min 05/29/22 23:25 BUN/Creatinine Ratio 16 % 05/29/22 23:25 Glucose 105 mg/dL (65-100) H 05/29/22 23:25 POC Glucose 109 mg/dL (70-105) H 05/29/22 23:52 Hemoglobin A1c 5.5 % (4-6) 05/29/22 23:25 Calcium 9.1 mg/dL (8.4-10.2) 05/29/22 23:25 Total Bilirubin 0.40 mg/dL (0.1-1.2) 05/29/22 23:25 AST 14 units/L (5-40) 05/29/22 23:25 ALT 9 units/L (7-56) 05/29/22 23:25 Alkaline Phosphatase 90 units/L (35-129) 05/29/22 23:25 Total Protein 6.7 g/dL (6.3-8.2) 05/29/22 23:25 Albumin 3.9 g/dL (3.9-5) 05/29/22 23:25 Albumin/Globulin Ratio 1.4 % 05/29/22 23:25 Triglycerides 38 mg/dL (2-149) 05/29/22 23:25 Cholesterol 198 mg/dL (50-199) 05/29/22 23:25 LDL Cholesterol Direct 108 mg/dL (50-130) 05/29/22 23:25 HDL Cholesterol 89 mg/dL (40-59) H 05/29/22 23:25 Cholesterol/HDL Ratio 2.22 % 05/29/22 23:25 TSH 1.730 mlU/mL (0.270-4.200) 05/29/22 23:25 Valproic Acid 4.4 ug/mL (50-100) L 06/03/22 07:14 Core Measure Documentation - Palliative Care Palliative Care/ Comfort Measures: Not Applicable - Core Measures Any of the following diagnoses?: none Exam - Constitutional Vitals: Temp Pulse Resp BP Pulse Ox 98.5 F 74 16 129/42 100 06/04/22 09:45 06/04/22 09:45 06/04/22 09:45 06/04/22 09:45 06/04/22 09:45 General appearance: Present: no acute distress - EENT Eyes: Present: PERRL, EOM intact ENT: hearing intact, clear oral mucosa - Neck Neck: Present: supple, normal ROM - Respiratory Respiratory effort: normal Plan Activity: advance as tolerated Weight Bearing Status: Weight Bear as Tolerated Care Plan Goals: Maintain good and stable mental health Plan of Treatment: The patient should be compliant with medications, not to use drugs and not to drink alcohol.The patient understands that if suicidal ideas, homicidal ideas, or any endangering thoughts/behavior arise, they should immediately seek for emergent assistance including but not limited to crisis hot line and emergency room. Follow up with outpatient Psychiatrist and PCP within 7 - 14 days of discharge. Assessment: Bipolar Disorder Follow up with: PRIMARY CARE, [Primary Care Provider] - 7 Days Prescriptions: QUEtiapine [SEROquel] 50 mg PO QHS #[address] [Depakote Dr] 250 mg PO BID #60 tablet
[2022-06-05] MEDS: DIVALPROEX DR 250 MG TAB PO SCH (10:13)
[2022-06-05] MEDS: PRENATAL VIT27-FE FUMARATE-FOLIC ACID VIT TAB PO SCH (10:13)
[2022-06-05] MEDS: ESTRADIOL 1 MG TAB PO SCH (10:13)
[2022-06-05] MEDS: PANTOPRAZOLE 40 MG TAB PO SCH (10:13)
== END 2022-06-05 15:42 | disposition home or self-care (01) | DRG 885 ==
LOC: UNDOADMIN 15:30 → 3A 15:30 → 5A 23:08
PROVIDERS: ADMIT Psychiatry & Neurology Psychiatry; ATTEND Psychiatry & Neurology Psychiatry
DX: F31.9 Bipolar disorder, unspecified (principal)
CPT/HCPCS: 36415; 80053; 80061; 80164; 82962; 83036; 84443; 85025; G0378